=== PATIENT | male | born 1970 | race Caucasian/White ===

== ENCOUNTER → 2017-07-22 | Outpatient (CLI) | payer BC, OTHER ==
--- NOTE | ~2017-07-22 | EKG ---
[address] [address] ELECTROCARDIOGRAM REPORT Name: DEREK SALAZARNIS [id number] Admission: 07/22/17 Attend Phys: Adelaide Frank MD Discharge: Date of : 66 Report #: [id number] THIS REPORT FOR: //name// [facility] Test Date: 2017-07-22 Test Time: 08:33:58 Pat Name: IRVING SALAZAR Department: Room: Gender: Business Relationship Manager: Brigida JEROME : 1970 Requested By: Adelaide Frank Order Number: [id number] MD: Kevin Ha Measurements Intervals [place] Rate: 70 P: 20 SC: 175 QRS: 10 QRSD: 96 T: 30 QT: 378 QTc: 408 Interpretive Statements Sinus rhythm Low voltage, precordial leads No previous ECG available for comparison Electronically Signed On 07-22-2017 14:59:57 DRAFTER by Kevin Ha [email or web address] <ELECTRONICALLY SIGNED> By: Kevin Ha MD 07/22/17 1459 0833 08 MD ZIA Collins
== END ==
LOC: CV 07:52
DX: E11.9 Type 2 diabetes mellitus without complications (principal)